=== PATIENT | female | born 1985 | race Caucasian/White ===

== ENCOUNTER 2016-11-27 21:39 | Emergency (ER) | payer MEDICAID ==
[~2016-11-27] VITALS: Ht 162.6 cm; Wt 135.0 kg
[~2016-11-27 21:39] MED LIST: ALBU90AE PO; AZIT500T77 PO; DIVA500T2 PO; DOCU-30 PO; FLUT1BLS INH; GLIM4TAB PO; KETO10TA PO; LEVO750T6 PO; METF500T4 PO; NICO1PAT5 TD; PRED10TA14 PO; QUET400T4 PO; TOPI25CA PO
[2016-11-27] MEDS ORDERED: methylPREDNISolone SOD SUCC 125 MG/2 ML IVP ONE (22:00)
[2016-11-27] MEDS ORDERED: SODIUM CHLORIDE FLUSH 10ML SYR IVF ONE (22:00)
[2016-11-27] MEDS ORDERED: PLEASE ENTER HEIGHT AND WEIGHT MC SCH (22:00)
[2016-11-27] MEDS ORDERED: SODIUM CHLORIDE 0.9% 1,000ML IVBOLUS ONE (22:00)
[2016-11-27] MEDS ORDERED: ALBUTEROL/IPRATROPIUM 2.5MG/0.5MG, 3 ML NPPB ONE (22:00)
[2016-11-27 22:19] LABS: ASPARTATE AMINO TRANSFERASE 39 U/L (15-37); BLOOD UREA NITROGEN 6 mg/dL (7-18)
[2016-11-27] MEDS ORDERED: methylPREDNISolone SOD SUCC 125 MG/2 ML ONE (22:19)
[2016-11-27 22:26] LABS: IS PT STATUS REG ER OR PRE ER? YES
[2016-11-27 23:26] VITALS: BP 134/86
== END 2016-11-27 23:29 | disposition home or self-care (01) ==
LOC: ED 22:40
DX: J45.51 Severe persistent asthma with (acute) exacerbation (principal); J44.9 Chronic obstructive pulmonary disease, unspecified
CPT/HCPCS: 36415; 71010; 80053; 83880; 84484; 84703; 93005; 94640; 96361; 96374; 99285; J2930; J7030; J7620

== ENCOUNTER 2017-01-16 20:39 | Inpatient (IN) | payer MEDICAID ==
[~2017-01-16] VITALS: Ht 162.6 cm; Wt 129.5 kg
[~2017-01-16 20:39] MED LIST changes: +AZIT500T5 PO; -AZIT500T77 PO; +DOCU-131 PO; -DOCU-30 PO; +NICO1PAT16 TD; -NICO1PAT5 TD
[2017-01-16] MEDS ORDERED: methylPREDNISolone SOD SUCC 125 MG/2 ML ONE (21:17)
[2017-01-16] MEDS ORDERED: ALBUTEROL SULFATE 2.5 MG/3 ML ONE ×2 (21:22→22:25)
[2017-01-16 21:29] LABS: HEMATOCRIT 41.8 % (34.6-47.8); HEMOGLOBIN 13.9 g/dL (11.7-16.4)
[2017-01-16] MEDS ORDERED: ALBUTEROL 0.5%, 20ML NPPB SCH (21:30)
[2017-01-16] MEDS ORDERED: SODIUM CHLORIDE 0.9% 1,000ML IVBOLUS ONE (21:30)
[2017-01-16] MEDS ORDERED: methylPREDNISolone SOD SUCC 125 MG/2 ML IVP ONE (21:30)
[2017-01-16 21:40] LABS: BLOOD UREA NITROGEN 9 mg/dL (7-18)
[2017-01-16] MEDS ORDERED: ALBUTEROL SULFATE 2.5 MG/3 ML NPPB ONE (22:30)
[2017-01-16] MEDS ORDERED: SODIUM CHLORIDE 0.9% 1,000 ML IV ONE (23:42)
[2017-01-17] MEDS ORDERED: BISACODYL 10 MG SUPP PR PRN (00:30)
[2017-01-17] MEDS ORDERED: POLYETHYLENE GLYCOL 17 GM PACKET PO PRN (00:30)
[2017-01-17] MEDS ORDERED: ONDANSETRON 2MG/ML, 2ML IVPush PRN ×2 (00:30)
[2017-01-17 01:50] VITALS: BP 136/91
[2017-01-17] MEDS: SODIUM CHLORIDE 0.9% 1,000 ML IV SCH ×2 (01:51→12:46)
[2017-01-17] MEDS: ACETAMINOPHEN 325 MG TABLET PO PRN (02:20)
[2017-01-17] MEDS: GUAIFENESIN/DM 200-20MG, 10ML UDC PO PRN ×2 (02:29→16:09)
[2017-01-17] MEDS: DIVALPROEX 500 MG TABLET.DR PO SCH ×2 (02:52→21:37)
[2017-01-17] MEDS: AZITHROMYCIN 500 MG in SODIUM CHLORIDE 0.9% 250 ML IV SCH (02:52)
[2017-01-17] MEDS: QUETIAPINE 200 MG TABLET PO SCH ×2 (03:22→21:37)
[2017-01-17] MEDS ORDERED: ALBUTEROL SULFATE 2.5 MG/3 ML NPPB PRN (03:30)
[2017-01-17] MEDS: methylPREDNISolone SOD SUCC 125 MG/2 ML IVPush SCH ×3 (05:25→21:37)
[2017-01-17 05:46] LABS: HEMATOCRIT 41.5 % (34.6-47.8); HEMOGLOBIN 13.8 g/dL (11.7-16.4); WHITE BLOOD COUNT 18.8 x10^3/uL (3.4-10)
[2017-01-17 06:00] LABS: ASPARTATE AMINO TRANSFERASE 13 U/L (15-37); BLOOD UREA NITROGEN 11 mg/dL (7-18)
[2017-01-17] MEDS ORDERED: ALBUTEROL/IPRATROPIUM 2.5MG/0.5MG, 3 ML NPPB PRN (06:00)
[2017-01-17] MEDS ORDERED: ALBUTEROL/IPRATROPIUM 2.5MG/0.5MG, 3 ML NPPB SCH (07:00)
[2017-01-17 07:06] VITALS: BP 124/81
[2017-01-17] MEDS: ALBUTEROL SULFATE 2.5 MG/3 ML NPPB SCH ×4 (07:06→20:40)
[2017-01-17] MEDS: HEPARIN 5,000 UNITS/ML, 1ML SQ SCH ×2 (08:07→16:12)
[2017-01-17] MEDS: metFORMIN 500 MG TABLET PO SCH ×2 (08:07→21:37)
[2017-01-17] MEDS: TOPIRAMATE 25 MG TABLET PO SCH ×2 (08:07→21:37)
[2017-01-17] MEDS: SENNA/DOCUSATE TABLET PO SCH (08:07)
[2017-01-17] MEDS ORDERED: FLUTICASONE/VILANTEROL 200-25MCG/INH INH SCH (09:00)
[2017-01-17 16:15] VITALS: BP 123/84
[2017-01-17 20:15] VITALS: BP 135/89
[2017-01-18] MEDS: AZITHROMYCIN 500 MG in SODIUM CHLORIDE 0.9% 250 ML IV SCH (02:16)
[2017-01-18] MEDS: HEPARIN 5,000 UNITS/ML, 1ML SQ SCH ×3 (02:16→18:20)
[2017-01-18 02:20] VITALS: BP 105/57
[2017-01-18 05:55] LABS: HEMOGLOBIN 13.4 g/dL (11.7-16.4); WHITE BLOOD COUNT 27.8 x10^3/uL (3.4-10)
[2017-01-18 05:58] LABS: ASPARTATE AMINO TRANSFERASE 12 U/L (15-37); BLOOD UREA NITROGEN 19 mg/dL (7-18)
[2017-01-18] MEDS: methylPREDNISolone SOD SUCC 125 MG/2 ML IVPush SCH ×3 (05:58→21:58)
[2017-01-18 06:29] LABS: DIFF TOTAL CELLS COUNTED 100 CELL DIFF
[2017-01-18 06:33] LABS: VERIFY COUNTS? YES
[2017-01-18 06:34] LABS: POLYCHROMASIA 1+
[2017-01-18] MEDS: ALBUTEROL SULFATE 2.5 MG/3 ML NPPB SCH ×4 (06:35→19:40)
[2017-01-18] MEDS: SENNA/DOCUSATE TABLET PO SCH (09:00)
[2017-01-18 09:31] VITALS: BP 120/76
[2017-01-18] MEDS: metFORMIN 500 MG TABLET PO SCH ×2 (09:33→20:36)
[2017-01-18] MEDS: TOPIRAMATE 25 MG TABLET PO SCH ×2 (09:33→20:36)
[2017-01-18] MEDS: GUAIFENESIN/DM 200-20MG, 10ML UDC PO PRN (13:33)
[2017-01-18] MEDS: NYSTATIN 500,000 UNITS/5 ML UDC PO SCH ×3 (13:33→20:36)
[2017-01-18 14:53] VITALS: BP 131/86
[2017-01-18] MEDS: DIVALPROEX 500 MG TABLET.DR PO SCH (20:35)
[2017-01-18] MEDS: QUETIAPINE 200 MG TABLET PO SCH (20:36)
[2017-01-18 20:47] VITALS: BP 151/97
[2017-01-19] MEDS: AZITHROMYCIN 500 MG in SODIUM CHLORIDE 0.9% 250 ML IV SCH (02:44)
[2017-01-19] MEDS: HEPARIN 5,000 UNITS/ML, 1ML SQ SCH ×3 (02:44→17:18)
[2017-01-19 03:29] VITALS: BP 107/68
[2017-01-19 05:23] LABS: HEMATOCRIT 39.1 % (34.6-47.8); HEMOGLOBIN 12.9 g/dL (11.7-16.4); WHITE BLOOD COUNT 20.6 x10^3/uL (3.4-10)
[2017-01-19 05:27] LABS: BLOOD UREA NITROGEN 24 mg/dL (7-18)
[2017-01-19 05:44] LABS: DIFF TOTAL CELLS COUNTED 100 CELL DIFF
[2017-01-19 05:46] LABS: VERIFY COUNTS? YES
[2017-01-19 05:47] LABS: ANISOCYTOSIS 1+
[2017-01-19] MEDS: NYSTATIN 500,000 UNITS/5 ML UDC PO SCH ×4 (06:01→22:21)
[2017-01-19] MEDS: methylPREDNISolone SOD SUCC 125 MG/2 ML IVPush SCH ×2 (06:01→13:46)
[2017-01-19] MEDS: ALBUTEROL SULFATE 2.5 MG/3 ML NPPB SCH ×4 (07:00→20:00)
[2017-01-19] MEDS: SENNA/DOCUSATE TABLET PO SCH (07:23)
[2017-01-19] MEDS: TOPIRAMATE 25 MG TABLET PO SCH ×2 (07:23→22:21)
[2017-01-19] MEDS: metFORMIN 500 MG TABLET PO SCH ×2 (07:23→22:21)
[2017-01-19 07:32] VITALS: BP 135/81
[2017-01-19] MEDS: ACETAMINOPHEN 325 MG TABLET PO PRN (11:35)
[2017-01-19 14:54] VITALS: BP 122/79
[2017-01-19 19:25] VITALS: BP 135/88
[2017-01-19] MEDS: QUETIAPINE 200 MG TABLET PO SCH (22:20)
[2017-01-19] MEDS: DIVALPROEX 500 MG TABLET.DR PO SCH (22:21)
[2017-01-20] MEDS: methylPREDNISolone SOD SUCC 125 MG/2 ML IVPush SCH ×3 (01:34→17:30)
[2017-01-20] MEDS: HEPARIN 5,000 UNITS/ML, 1ML SQ SCH ×2 (01:35→09:33)
[2017-01-20] MEDS: AZITHROMYCIN 500 MG in SODIUM CHLORIDE 0.9% 250 ML IV SCH (03:08)
[2017-01-20 03:40] VITALS: BP 106/66
[2017-01-20] MEDS: NYSTATIN 500,000 UNITS/5 ML UDC PO SCH ×4 (06:21→16:48)
[2017-01-20] MEDS: ALBUTEROL SULFATE 2.5 MG/3 ML NPPB SCH ×3 (07:01→17:55)
[2017-01-20 07:55] VITALS: BP 100/68
[2017-01-20] MEDS: SENNA/DOCUSATE TABLET PO SCH (09:27)
[2017-01-20] MEDS: metFORMIN 500 MG TABLET PO SCH (09:27)
[2017-01-20] MEDS: TOPIRAMATE 25 MG TABLET PO SCH (09:27)
[2017-01-20 09:38] LABS: HEMATOCRIT 40.8 % (34.6-47.8); HEMOGLOBIN 13.4 g/dL (11.7-16.4); WHITE BLOOD COUNT 15.8 x10^3/uL (3.4-10)
[2017-01-20 10:00] LABS: DIFF TOTAL CELLS COUNTED 100 CELL DIFF
[2017-01-20 10:01] LABS: ANISOCYTOSIS 1+; VERIFY COUNTS? YES
[2017-01-20 13:33] VITALS: BP 123/86
[2017-01-20] MEDS ORDERED: PRED10TA PO (15:45)
[2017-01-20] MEDS ORDERED: ALBU8.5H8 INH (15:53)
[2017-01-20 16:07] VITALS: BP 134/86
== END 2017-01-20 17:40 | disposition home or self-care (01) | DRG 871 ==
LOC: ED 23:41 → EDIP 23:50 → 4WST 01-17 00:54 → 4NOR 01-17 01:27
PROVIDERS: ADMIT Internal Medicine; ATTEND Internal Medicine
DX: A41.9 Sepsis, unspecified organism (principal); J96.01 Acute respiratory failure with hypoxia; E44.1 Mild protein-calorie malnutrition; J44.1 Chronic obstructive pulmonary disease with (acute) exacerbation; Z68.41 Body mass index [BMI] 40.0-44.9, adult; I10 Essential (primary) hypertension; E11.9 Type 2 diabetes mellitus without complications; E66.01 Morbid (severe) obesity due to excess calories; F17.210 Nicotine dependence, cigarettes, uncomplicated; F31.9 Bipolar disorder, unspecified; L68.0 Hirsutism; R00.0 Tachycardia, unspecified; K76.0 Fatty (change of) liver, not elsewhere classified; Z79.84 Long term (current) use of oral hypoglycemic drugs; Z80.0 Family history of malignant neoplasm of digestive organs; Z79.899 Other long term (current) drug therapy
CPT/HCPCS: 36415; 71010; 80048; 80053; 81003; 82040; 82962; 83735; 84100; 85025; 87070; 87205; 93005; 94640; 96361; 96374; J0456; J1644; J7613; J2930; J7030; J7050

== ENCOUNTER 2017-03-31 15:22 | Emergency (ER) | payer MEDICAID ==
[~2017-03-31] VITALS: Ht 162.6 cm; Wt 127.0 kg
[~2017-03-31 15:22] MED LIST changes: +ALBU8.5H8 INH; +NICO-487 TD; -NICO1PAT16 TD; +PRED10TA PO
[2017-03-31] MEDS ORDERED: methylPREDNISolone SOD SUCC 125 MG/2 ML ONE (15:52)
[2017-03-31] MEDS ORDERED: ALBUTEROL/IPRATROPIUM 2.5MG/0.5MG, 3 ML ONE (15:56)
[2017-03-31] MEDS ORDERED: SODIUM CHLORIDE FLUSH 10ML SYR IVF ONE (16:00)
[2017-03-31] MEDS ORDERED: methylPREDNISolone SOD SUCC 125 MG/2 ML IVP ONE (16:00)
[2017-03-31] MEDS ORDERED: ALBUTEROL/IPRATROPIUM 2.5MG/0.5MG, 3 ML NPPB ONE ×2 (16:00→18:00)
[2017-03-31 17:14] VITALS: BP 153/94
== END 2017-03-31 19:37 | disposition home or self-care (01) ==
LOC: ED 19:15
DX: J44.0 Chronic obstructive pulmonary disease with (acute) lower respiratory infection (principal); J18.9 Pneumonia, unspecified organism; I10 Essential (primary) hypertension; E11.9 Type 2 diabetes mellitus without complications; F31.9 Bipolar disorder, unspecified
CPT/HCPCS: 71010; 82962; 93005; 94640; 96374; 99284; J2930; J7620

== ENCOUNTER 2017-06-08 19:33 | Emergency (ER) | payer MEDICAID ==
[~2017-06-08] VITALS: Ht 162.6 cm; Wt 133.4 kg
[~2017-06-08 19:33] MED LIST changes: +BENZ100C PO; +DOXY100T PO; +GUAI5SYR PO
[2017-06-08 20:35] LABS: RAPID INFLUENZA A Negative (Negative); RAPID INFLUENZA B Negative (Negative)
[2017-06-08] MEDS ORDERED: ALBUTEROL/IPRATROPIUM 2.5MG/0.5MG, 3 ML ONE (20:47)
[2017-06-08 20:50] LABS: BASOPHILS # (AUTO) 0.07 x10^3/uL (0-0.1); BASOPHILS % (AUTO) 1 % (0-1); EOSINOPHILS # (AUTO) 0.24 x10^3/uL (0-0.4); EOSINOPHILS % (AUTO) 2 % (1-7); LYMPHOCYTES # (AUTO) 4.66 x10^3/uL (1-3.4); LYMPHOCYTES % (AUTO) 32 % (22-44); MD NO; MEAN CORPUSCULAR HEMOGLOBIN 27.8 pg (27.0-34.8); MEAN CORPUSCULAR HGB CONC 32.4 g/dL (32.4-35.8); MEAN CORPUSCULAR VOLUME 85.8 fL (80-100); MONOCYTES # (AUTO) 0.63 x10^3/uL (0.2-0.8); MONOCYTES % (AUTO) 4 % (2-9); NEUTROPHILS % (AUTO) 62 % (42-75); PLATELET COUNT 328 x10^3/uL (130-400); RED BLOOD COUNT 4.77 x10^6/uL (3.82-5.3); RED CELL DISTRIBUTION WIDTH 16.2 % (9.6-15.2)
[2017-06-08] MEDS ORDERED: ALBUTEROL/IPRATROPIUM 2.5MG/0.5MG, 3 ML NPPB ONE (21:00)
[2017-06-08 21:02] LABS: ALBUMIN 3.6 g/dL (3.4-5.0); ANION GAP 8 mmol/L (5-15); CHLORIDE 108 mmol/L (98-107)
[2017-06-08 21:06] LABS: TROPONIN I < 0.015 ng/mL (0.000-0.045)
[2017-06-08 21:33] VITALS: BP 151/106
== END 2017-06-08 22:25 ==
LOC: ED 21:00
DX: J44.1 Chronic obstructive pulmonary disease with (acute) exacerbation (principal); E11.9 Type 2 diabetes mellitus without complications; E66.9 Obesity, unspecified; I10 Essential (primary) hypertension
CPT/HCPCS: 36415; 71046; 80048; 82040; 84484; 85025; 87400; 93005; 94640; 99285; J7512; J7620

== ENCOUNTER 2017-07-20 21:58 | Emergency (ER) | payer MEDICAID ==
[~2017-07-20] VITALS: Ht 162.6 cm; Wt 132.8 kg
[2017-07-20] MEDS ORDERED: ALBUTEROL SULFATE 2.5 MG/3 ML NPPB ONE (23:00)
[2017-07-21 00:07] VITALS: BP 134/88
== END 2017-07-21 00:08 | disposition home or self-care (01) ==
LOC: ED 23:57
DX: J44.1 Chronic obstructive pulmonary disease with (acute) exacerbation (principal); I10 Essential (primary) hypertension; E11.9 Type 2 diabetes mellitus without complications; F31.9 Bipolar disorder, unspecified
CPT/HCPCS: 71046; 93005; 99284

== ENCOUNTER 2017-09-24 22:01 | Emergency (ER) | payer MEDICAID ==
[~2017-09-24] VITALS: Ht 162.6 cm; Wt 131.4 kg
[~2017-09-24 22:01] MED LIST changes: +SITA1TAB PO
[2017-09-24 22:04] VITALS: BP 141/97
[2017-09-24] MEDS ORDERED: ALBUTEROL/IPRATROPIUM 2.5MG/0.5MG, 3 ML ONE (22:29)
[2017-09-24] MEDS ORDERED: ALBUTEROL/IPRATROPIUM 2.5MG/0.5MG, 3 ML NEB ONE (22:30)
[2017-09-24] MEDS ORDERED: ACETAMINOPHEN 325 MG TABLET PO ONE (22:30)
[2017-09-24] MEDS ORDERED: IBUPROFEN 800 MG TABLET PO STA (22:39)
[2017-09-24] MEDS ORDERED: ACETAMINOPHEN 325 MG TABLET ONE (22:43)
[2017-09-24] MEDS ORDERED: IBUPROFEN 200 MG TABLET ONE (22:44)
[2017-09-24] MEDS ORDERED: BENZONATATE 100 MG CAPSULE ONE (22:45)
[2017-09-24] MEDS ORDERED: BENZONATATE 100 MG CAPSULE PO ONE (23:00)
== END 2017-09-24 23:22 | disposition home or self-care (01) ==
LOC: ED 23:15
DX: J45.21 Mild intermittent asthma with (acute) exacerbation (principal); J44.1 Chronic obstructive pulmonary disease with (acute) exacerbation
CPT/HCPCS: 71046; 94640; 99284; J7512; 82962

== ENCOUNTER 2017-10-25 21:38 | Inpatient (IN) | payer MEDICAID ==
[~2017-10-25] VITALS: Ht 162.6 cm; Wt 127.2 kg
[~2017-10-25 21:38] MED LIST changes: -METF500T4 PO; +METF500T5 PO
[2017-10-25] MEDS ORDERED: ALBUTEROL/IPRATROPIUM 2.5MG/0.5MG, 3 ML NPPB PRN (22:30)
[2017-10-25] MEDS ORDERED: ALBUTEROL/IPRATROPIUM 2.5MG/0.5MG, 3 ML ONE (22:30)
[2017-10-25 22:39] LABS: MEAN CORPUSCULAR HEMOGLOBIN 29.1 pg (27.0-34.8); MEAN CORPUSCULAR HGB CONC 33.3 g/dL (32.4-35.8); MEAN CORPUSCULAR VOLUME 87.1 fL (80-100); PLATELET COUNT 331 x10^3/uL (130-400); RED BLOOD COUNT 4.73 x10^6/uL (3.82-5.3); RED CELL DISTRIBUTION WIDTH 15.4 % (9.6-15.2)
[2017-10-25 22:52] LABS: ALBUMIN 3.6 g/dL (3.4-5.0); ANION GAP 11 mmol/L (5-15); CALCIUM 9.5 mg/dL (8.5-10.1); CHLORIDE 110 mmol/L (98-107); CREATININE 1.01 mg/dL (0.55-1.02)
[2017-10-25 22:54] LABS: BASOPHILS # (AUTO) 0.15 x10^3/uL (0-0.1); BASOPHILS % (AUTO) 1 % (0-1); EOSINOPHILS # (AUTO) 0.22 x10^3/uL (0-0.4); EOSINOPHILS % (AUTO) 1 % (1-7); LYMPHOCYTES # (AUTO) 3.62 x10^3/uL (1-3.4); LYMPHOCYTES % (AUTO) 18 % (22-44); MD SCAN; MONOCYTES # (AUTO) 0.64 x10^3/uL (0.2-0.8); MONOCYTES % (AUTO) 3 % (2-9); NEUTROPHILS # (AUTO) 15.34 x10^3/uL (1.8-6.8); NEUTROPHILS % (AUTO) 77 % (42-75)
[2017-10-25 22:56] LABS: TROPONIN I < 0.015 ng/mL (0.000-0.045)
[2017-10-25] MEDS ORDERED: SODIUM CHLORIDE 0.9% 1,000ML IVBOLUS ONE (23:00)
[2017-10-25] MEDS ORDERED: SODIUM CHLORIDE FLUSH 10ML SYR IVF ONE (23:00)
[2017-10-26 00:06] LABS: HCG UR SG 1.027 (1.003-1.030)
[2017-10-26] MEDS ORDERED: OMNIPAQUE 350 MG/ML, 100ML BOTTLE ONE (00:06)
[2017-10-26] MEDS ORDERED: SODIUM CHLORIDE 0.9% 1,000ML IVBOLUS ONE (00:30)
[2017-10-26] MEDS ORDERED: CEFTRIAXONE PMX 1GM/50ML 50 ML IVPB ONE (00:30)
[2017-10-26] MEDS ORDERED: CEFTRIAXONE PMX 1GM/50ML 50 ML ONE (00:52)
[2017-10-26] MEDS ORDERED: BISACODYL 10 MG SUPP PR PRN (01:00)
[2017-10-26] MEDS ORDERED: TEMPLATE NON-FORMULARY MED. (Albuterol Sulfate (Proair Hfa) 2 PUFF(S)) INH PRN (01:00)
[2017-10-26] MEDS ORDERED: POLYETHYLENE GLYCOL 17 GM PACKET PO PRN (01:00)
[2017-10-26] MEDS ORDERED: hydrALAzine 20 MG/ML, 1ML IVPush PRN (01:00)
[2017-10-26] MEDS ORDERED: ACETAMINOPHEN 325 MG TABLET PO PRN (01:00)
[2017-10-26] MEDS ORDERED: DOCUSATE 100 MG CAPSULE PO PRN (01:00)
[2017-10-26] MEDS ORDERED: ONDANSETRON 2MG/ML, 2ML IVPush PRN (01:00)
[2017-10-26] MEDS: AZITHROMYCIN 500 MG in SODIUM CHLORIDE 0.9% 250 ML IV ONE ×2 (01:03→01:20)
[2017-10-26] MEDS ORDERED: ALBUTEROL/IPRATROPIUM 2.5MG/0.5MG, 3 ML ONE (01:08)
[2017-10-26] MEDS ORDERED: ALBUTEROL/IPRATROPIUM 2.5MG/0.5MG, 3 ML NPPB PRN (01:30)
[2017-10-26 01:57] VITALS: BP 151/98
[2017-10-26] MEDS: methylPREDNISolone SOD SUCC 125 MG/2 ML IVPush SCH ×4 (02:50→19:29)
[2017-10-26] MEDS: ENOXAPARIN 40 MG/0.4 ML SQ SCH (02:50)
[2017-10-26] MEDS ORDERED: ALBUTEROL/IPRATROPIUM 2.5MG/0.5MG, 3 ML NPPB SCH (03:00)
[2017-10-26] MEDS: DOXYCYCLINE 100 MG in DEXTROSE 5% 250 ML IV SCH ×2 (04:13→17:38)
[2017-10-26] MEDS: ALBUTEROL/IPRATROPIUM 2.5MG/0.5MG, 3 ML NPPB SCH ×5 (05:30→22:00)
[2017-10-26 07:42] VITALS: BP 144/91
[2017-10-26 08:24] LABS: MEAN CORPUSCULAR HEMOGLOBIN 28.5 pg (27.0-34.8); MEAN CORPUSCULAR HGB CONC 32.8 g/dL (32.4-35.8); MEAN CORPUSCULAR VOLUME 86.8 fL (80-100); MEAN PLATELET VOLUME 8.5 fL (7.4-10.4); PLATELET COUNT 315 x10^3/uL (130-400); RED BLOOD COUNT 4.75 x10^6/uL (3.82-5.3); RED CELL DISTRIBUTION WIDTH 15.7 % (9.6-15.2)
[2017-10-26 08:35] LABS: ANION GAP 10 mmol/L (5-15); CALCIUM 9.2 mg/dL (8.5-10.1); CHLORIDE 106 mmol/L (98-107); CREATININE 0.94 mg/dL (0.55-1.02)
[2017-10-26] MEDS: SITAGLIPTIN 50MG TABLET PO SCH (08:48)
[2017-10-26] MEDS: metFORMIN 500 MG TABLET PO SCH (08:48)
[2017-10-26] MEDS: GUAIFENESIN ER 600 MG TABLET PO SCH ×2 (08:48→19:29)
[2017-10-26] MEDS: SODIUM CHLORIDE FLUSH 10ML SYR IVF SCH ×2 (08:49→19:30)
[2017-10-26 10:01] LABS: MICROSCOPIC NOT IND
[2017-10-26 10:07] LABS: CULTURE INDICATED? NO
[2017-10-26 10:10] LABS: MD YES
[2017-10-26 12:08] LABS: BAND#(MANUAL) 1.36 x10^3/uL; BANDS%(MANUAL) 6 % (0-7); LYMPH#(MANUAL) 1.82 x10^3/uL (1-3.4); LYMPHS% (MANUAL) 8 % (22-44); REACTIVE LYMPHS # (MANUAL) 0.23 x10^3/uL (0-0); REACTIVE LYMPHS % (MANUAL) 1 % (0-0); SEGS% (MANUAL) 85 % (42-75)
[2017-10-26 12:09] LABS: <PLATELET ESTIMATE> ADEQUATE; <PLT MORPHOLOGY> NORMAL PLT MORPH; <RBC MORPHOLOGY> NORMAL
[2017-10-26 13:10] VITALS: BP 126/87
[2017-10-26 18:43] VITALS: BP 128/91
[2017-10-26] MEDS: QUETIAPINE 200 MG TABLET PO SCH (19:29)
[2017-10-26] MEDS: DIVALPROEX 500 MG TABLET.DR PO SCH (19:29)
[2017-10-27 00:56] VITALS: BP 139/92
[2017-10-27] MEDS: CEFTRIAXONE PMX 1GM/50ML 50 ML IV SCH (01:09)
[2017-10-27] MEDS: ENOXAPARIN 40 MG/0.4 ML SQ SCH (01:10)
[2017-10-27] MEDS: methylPREDNISolone SOD SUCC 125 MG/2 ML IVPush SCH ×4 (01:10→20:37)
[2017-10-27] MEDS: ALBUTEROL/IPRATROPIUM 2.5MG/0.5MG, 3 ML NPPB SCH ×5 (02:00→18:00)
[2017-10-27] MEDS: DOXYCYCLINE 100 MG in DEXTROSE 5% 250 ML IV SCH ×2 (04:03→18:12)
[2017-10-27 05:47] LABS: MEAN CORPUSCULAR HGB CONC 33.4 g/dL (32.4-35.8); MEAN CORPUSCULAR VOLUME 86.8 fL (80-100); MEAN PLATELET VOLUME 8.6 fL (7.4-10.4); PLATELET COUNT 324 x10^3/uL (130-400); RED BLOOD COUNT 4.62 x10^6/uL (3.82-5.3); RED CELL DISTRIBUTION WIDTH 15.5 % (9.6-15.2)
[2017-10-27 05:54] LABS: ANION GAP 6 mmol/L (5-15); CALCIUM 9.8 mg/dL (8.5-10.1); CHLORIDE 106 mmol/L (98-107)
[2017-10-27 05:56] LABS: CREATININE 1.08 mg/dL (0.55-1.02)
[2017-10-27 06:48] LABS: BASOPHILS # (AUTO) 0.04 x10^3/uL (0-0.1); BASOPHILS % (AUTO) 0 % (0-1); EOSINOPHILS # (AUTO) 0.01 x10^3/uL (0-0.4); EOSINOPHILS % (AUTO) 0 % (1-7); LYMPHOCYTES # (AUTO) 2.43 x10^3/uL (1-3.4); LYMPHOCYTES % (AUTO) 11 % (22-44); MD SCAN; MONOCYTES # (AUTO) 0.47 x10^3/uL (0.2-0.8); MONOCYTES % (AUTO) 2 % (2-9); NEUTROPHILS # (AUTO) 19.72 x10^3/uL (1.8-6.8); NEUTROPHILS % (AUTO) 87 % (42-75)
[2017-10-27 07:18] VITALS: BP 112/75
[2017-10-27] MEDS: SODIUM CHLORIDE FLUSH 10ML SYR IVF SCH ×2 (08:12→20:38)
[2017-10-27] MEDS: SITAGLIPTIN 50MG TABLET PO SCH (08:13)
[2017-10-27] MEDS: GUAIFENESIN ER 600 MG TABLET PO SCH ×2 (08:13→20:37)
[2017-10-27] MEDS: metFORMIN 500 MG TABLET PO SCH (08:13)
[2017-10-27 09:33] LABS: HCT (SEDRATE) 39.2 % (34.6-47.8)
[2017-10-27 13:15] VITALS: BP 130/79
[2017-10-27 19:29] VITALS: BP 139/93
[2017-10-27] MEDS: DIVALPROEX 500 MG TABLET.DR PO SCH (20:37)
[2017-10-27] MEDS: QUETIAPINE 200 MG TABLET PO SCH (20:37)
[2017-10-28 00:20] VITALS: BP 147/95
[2017-10-28] MEDS: CEFTRIAXONE PMX 1GM/50ML 50 ML IV SCH (00:22)
[2017-10-28] MEDS: ENOXAPARIN 40 MG/0.4 ML SQ SCH (00:23)
[2017-10-28] MEDS: methylPREDNISolone SOD SUCC 125 MG/2 ML IVPush SCH ×2 (03:00→09:24)
[2017-10-28] MEDS: DOXYCYCLINE 100 MG in DEXTROSE 5% 250 ML IV SCH (04:00)
[2017-10-28 05:10] LABS: MEAN CORPUSCULAR HGB CONC 33.4 g/dL (32.4-35.8); MEAN PLATELET VOLUME 8.5 fL (7.4-10.4); PLATELET COUNT 310 x10^3/uL (130-400); RED BLOOD COUNT 4.42 x10^6/uL (3.82-5.3); RED CELL DISTRIBUTION WIDTH 15.5 % (9.6-15.2)
[2017-10-28 05:14] LABS: ANION GAP 9 mmol/L (5-15); CALCIUM 9.3 mg/dL (8.5-10.1); CHLORIDE 104 mmol/L (98-107); CREATININE 1.06 mg/dL (0.55-1.02)
[2017-10-28 05:49] LABS: MD YES
[2017-10-28 05:50] LABS: <PLATELET ESTIMATE> ADEQUATE; <PLT MORPHOLOGY> NORMAL PLT MORPH; <RBC MORPHOLOGY> NORMAL; BAND#(MANUAL) 0.21 x10^3/uL; BANDS%(MANUAL) 1 % (0-7); LYMPHS% (MANUAL) 14 % (22-44); METAMYELOCYTES# (MANUAL) 0.43 x10^3/uL (0-0); METAMYELOCYTES% (MANUAL) 2 % (0-1); MONOS#(MANUAL) 0.64 x10^3/uL (0.3-2.7); MONOS% (MANUAL) 3 % (2-9); SEG#(MANUAL) 17.12 x10^3/uL (1.8-6.8); SEGS% (MANUAL) 80 % (42-75)
[2017-10-28 05:51] LABS: TOXIC GRAN 1+
[2017-10-28] MEDS ORDERED: ALBUTEROL/IPRATROPIUM 2.5MG/0.5MG, 3 ML NPPB SCH (07:00)
[2017-10-28 07:26] VITALS: BP 138/87
[2017-10-28] MEDS: SODIUM CHLORIDE FLUSH 10ML SYR IVF SCH (09:00)
[2017-10-28] MEDS: GUAIFENESIN ER 600 MG TABLET PO SCH (09:24)
[2017-10-28] MEDS: metFORMIN 500 MG TABLET PO SCH (09:24)
[2017-10-28] MEDS: SITAGLIPTIN 50MG TABLET PO SCH (09:24)
[2017-10-28] MEDS ORDERED: CEFD300C37 PO (11:13)
[2017-10-28] MEDS ORDERED: ALBU8.5H8 INH (11:13)
[2017-10-28] MEDS ORDERED: PRED5TAB PO (11:13)
[2017-10-28] MEDS ORDERED: DOXY100T10 PO (11:13)
[2017-10-28] MEDS ORDERED: METF500T5 PO (11:13)
[2017-10-28] MEDS ORDERED: IPRA3AMP NPPB (11:13)
== END 2017-10-28 11:11 | disposition left against medical advice (07) | DRG 871 ==
LOC: ED 22:05 → EDIP 10-26 00:44 → 3NE 10-26 01:51
PROVIDERS: ADMIT Hospitalist; ATTEND Hospitalist
DX: A41.9 Sepsis, unspecified organism (principal); J18.9 Pneumonia, unspecified organism; J96.01 Acute respiratory failure with hypoxia; J44.0 Chronic obstructive pulmonary disease with (acute) lower respiratory infection; J44.1 Chronic obstructive pulmonary disease with (acute) exacerbation; J45.52 Severe persistent asthma with status asthmaticus; Z68.42 Body mass index [BMI] 45.0-49.9, adult; E11.65 Type 2 diabetes mellitus with hyperglycemia; E66.9 Obesity, unspecified; E78.5 Hyperlipidemia, unspecified; F31.9 Bipolar disorder, unspecified; I11.9 Hypertensive heart disease without heart failure; J20.9 Acute bronchitis, unspecified; K76.0 Fatty (change of) liver, not elsewhere classified; Z53.21 Procedure and treatment not carried out due to patient leaving prior to being seen by health care provider; Z82.0 Family history of epilepsy and other diseases of the nervous system; Z82.49 Family history of ischemic heart disease and other diseases of the circulatory system; Z83.3 Family history of diabetes mellitus; Z99.81 Dependence on supplemental oxygen
CPT/HCPCS: 36415; 71045; 71275; 80048; 81003; 81025; 82040; 82164; 83605; 83735; 84484; 85025; 85651; 86140; 87040; 94640; 96374; J0456; J0696; J1650; J7060; J7620; Q9967; J2930; J7030; J7050; J7512

== ENCOUNTER 2017-11-03 23:02 | Emergency (ER) | payer MEDICAID ==
[~2017-11-03] VITALS: Ht 162.6 cm; Wt 128.2 kg
[~2017-11-03 23:02] MED LIST changes: +CEFD300C37 PO; +DOXY100T10 PO; +IPRA3AMP NPPB; +PRED5TAB PO
[2017-11-03 23:05] VITALS: BP 154/96
== END 2017-11-04 00:27 | disposition home or self-care (01) ==
LOC: ED 23:50
DX: J02.8 Acute pharyngitis due to other specified organisms (principal); I10 Essential (primary) hypertension; E11.9 Type 2 diabetes mellitus without complications; F31.9 Bipolar disorder, unspecified; J44.9 Chronic obstructive pulmonary disease, unspecified; F17.200 Nicotine dependence, unspecified, uncomplicated
CPT/HCPCS: 99281

== ENCOUNTER 2017-12-08 22:48 | Emergency (ER) | payer MEDICAID ==
[~2017-12-08] VITALS: Ht 162.6 cm; Wt 125.0 kg
[~2017-12-08 22:48] MED LIST changes: -IPRA3AMP NPPB; +IPRA3AMP30 NPPB
[2017-12-08] MEDS ORDERED: ALBUTEROL/IPRATROPIUM 2.5MG/0.5MG, 3 ML NPPB ONE (23:30)
[2017-12-08] MEDS ORDERED: ALBUTEROL/IPRATROPIUM 2.5MG/0.5MG, 3 ML ONE (23:31)
[2017-12-09 00:22] VITALS: BP 144/78
== END 2017-12-09 01:29 | disposition home or self-care (01) ==
LOC: ED 23:59
DX: J45.31 Mild persistent asthma with (acute) exacerbation (principal); I10 Essential (primary) hypertension; E11.9 Type 2 diabetes mellitus without complications
CPT/HCPCS: 71046; 93005; 94640; 99284; J7620